=== PATIENT | female | born 1965 | race Hispanic/Latino ===

== ENCOUNTER → 2022-03-23 | Outpatient (CLI) | payer OTHER ==
[~2022-03-23] MED LIST: ASPI-1005 PO; ATOR40TA71 PO; METO25TA6 PO
== END | disposition home or self-care (01) ==
LOC: SHCH 15:37
PROVIDERS: ATTEND Student in an Organized Health Care Education/Training Program
DX: R07.9 Chest pain, unspecified (principal)
CPT/HCPCS: 93306